=== PATIENT | male | born 1970 | race Two or more races ===

== ENCOUNTER 2019-02-23 15:13 | Inpatient (IN) | payer OTHER ==
[~2019-02-23] VITALS: Ht 162.6 cm; Wt 86.2 kg
--- NOTE | 2019-02-23 15:26 | NUR ---
SYMPTOMOLOGY REVIEWED WITH PROVIDER IN TRIAGE, PER MOMO KLIPATRICK, PT DOES NOT NEED EKG AT THIS TIME.
[2019-02-23 15:56] LABS: BASOPHILS # (AUTO) 0.06 x10^3/uL (0-0.1); BASOPHILS % (AUTO) 1 % (0-1); EOSINOPHILS # (AUTO) 0.12 x10^3/uL (0-0.4); EOSINOPHILS % (AUTO) 1 % (1-7); LYMPHOCYTES # (AUTO) 3.21 x10^3/uL (1-3.4); LYMPHOCYTES % (AUTO) 24 % (22-44); MD NO; MEAN CORPUSCULAR HEMOGLOBIN 29.5 pg (27.5-34.5); MEAN CORPUSCULAR HGB CONC 34.2 g/dL (33.2-36.2); MEAN CORPUSCULAR VOLUME 86.3 fL (81-97); MEAN PLATELET VOLUME 8.1 fL (7.4-10.4); MONOCYTES # (AUTO) 0.67 x10^3/uL (0.2-0.8); MONOCYTES % (AUTO) 5 % (2-9); NEUTROPHILS # (AUTO) 9.16 x10^3/uL (1.8-6.8); NEUTROPHILS % (AUTO) 69 % (42-75); PLATELET COUNT 320 x10^3/uL (130-400); RED BLOOD COUNT 6.39 x10^6/uL (4.38-5.82); RED CELL DISTRIBUTION WIDTH 13.1 % (9.4-14.8)
[2019-02-23 16:11] LABS: ALBUMIN 4.3 g/dL (3.4-5.0); ANION GAP 11 mmol/L (5-15); CALCIUM 9.5 mg/dL (8.5-10.1); CHLORIDE 108 mmol/L (98-107)
[2019-02-23 16:15] LABS: ALANINE AMINOTRANSFERASE 34 U/L (12-78); ALKALINE PHOSPHATASE 85 U/L (45-117); BILIRUBIN,TOTAL 0.4 mg/dL (0.2-1.0); TOTAL PROTEIN 8.8 g/dL (6.4-8.2)
--- NOTE | 2019-02-23 16:26 | NUR ---
MEDICAL LOGISTICS SPECIALIST: PT TO ROOM FROM LOBBY
[2019-02-23] MEDS ORDERED: ONDANSETRON 2MG/ML, 2ML ONE (16:59)
[2019-02-23] MEDS ORDERED: MORPHINE SULFATE 4 MG/ML, 1ML ONE (16:59)
[2019-02-23] MEDS ORDERED: POTASSIUM CHLORIDE 10 MEQ in D5%-0.45% NACL 1,000 ML IV ONE (17:04)
--- NOTE | 2019-02-23 17:05 | NUR ---
rEPORT CALLED TO FLOOR
--- NOTE | 2019-02-23 17:25 | NUR ---
ERP AND SURGERY AT BEDSIDE. PT VSS, NG INSERTED, AUSCULTATED FOR PLACEMENT, APPROX 500 DARK FLUID OUT.
[2019-02-23] MEDS ORDERED: MORPHINE SULFATE 4 MG/ML, 1ML IVPush ONE (18:00)
[2019-02-23] MEDS ORDERED: MORPHINE SULFATE 4 MG/ML, 1ML IV PRN (18:00)
[2019-02-23] MEDS ORDERED: ONDANSETRON 2MG/ML, 2ML IVPush ONE (18:00)
[2019-02-23] MEDS ORDERED: SODIUM CHLORIDE 0.9% 1,000 ML IV ONE (18:00)
[2019-02-23] MEDS: SODIUM CHLORIDE 0.9% 1,000 ML IV SCH (18:33)
[2019-02-23] MEDS: METOCLOPRAMIDE 5 MG/ML, 2ML IV SCH (18:33)
[2019-02-23 19:26] VITALS: BP 123/79
[2019-02-23] MEDS: FAMOTIDINE 20 MG/2 ML IVPush SCH (20:55)
[2019-02-24] MEDS: SODIUM CHLORIDE 0.9% 1,000 ML IV SCH ×3 (00:57→21:18)
[2019-02-24] MEDS: METOCLOPRAMIDE 5 MG/ML, 2ML IV SCH ×5 (01:09→23:59)
[2019-02-24 02:08] VITALS: BP 104/66
[2019-02-24 05:47] LABS: BASOPHILS # (AUTO) 0.02 x10^3/uL (0-0.1); BASOPHILS % (AUTO) 0 % (0-1); EOSINOPHILS # (AUTO) 0.18 x10^3/uL (0-0.4); EOSINOPHILS % (AUTO) 2 % (1-7); LYMPHOCYTES # (AUTO) 2.52 x10^3/uL (1-3.4); LYMPHOCYTES % (AUTO) 25 % (22-44); MD NO; MEAN CORPUSCULAR HEMOGLOBIN 29.9 pg (27.5-34.5); MEAN CORPUSCULAR HGB CONC 34.1 g/dL (33.2-36.2); MEAN CORPUSCULAR VOLUME 87.8 fL (81-97); MEAN PLATELET VOLUME 8.4 fL (7.4-10.4); MONOCYTES # (AUTO) 0.83 x10^3/uL (0.2-0.8); MONOCYTES % (AUTO) 8 % (2-9); NEUTROPHILS % (AUTO) 65 % (42-75); PLATELET COUNT 258 x10^3/uL (130-400); RED BLOOD COUNT 5.32 x10^6/uL (4.38-5.82)
[2019-02-24 05:50] LABS: ANION GAP 7 mmol/L (5-15); CALCIUM 7.8 mg/dL (8.5-10.1); CHLORIDE 114 mmol/L (98-107)
[2019-02-24 05:52] LABS: CREATININE 1.04 mg/dL (0.7-1.3)
[2019-02-24 06:46] LABS: MICROSCOPIC NOT IND
[2019-02-24 06:48] LABS: CULTURE INDICATED? NO
[2019-02-24 07:10] VITALS: BP 116/66
[2019-02-24] MEDS: FAMOTIDINE 20 MG/2 ML IVPush SCH ×2 (10:06→21:18)
[2019-02-24 13:55] VITALS: BP 120/72
[2019-02-24 15:14] LABS: CLOSTRIDIUM DIFFICILE ANTIGEN NEGATIVE; CLOSTRIDIUM DIFFICILE TOXIN NEGATIVE (Negative)
[2019-02-24 18:35] VITALS: BP 118/71
[2019-02-24 20:25] VITALS: BP 129/67
[2019-02-25 00:45] VITALS: BP 114/59
[2019-02-25] MEDS: SODIUM CHLORIDE 0.9% 1,000 ML IV SCH (03:46)
[2019-02-25 05:36] LABS: BASOPHILS # (AUTO) 0.03 x10^3/uL (0-0.1); BASOPHILS % (AUTO) 0 % (0-1); EOSINOPHILS # (AUTO) 0.25 x10^3/uL (0-0.4); EOSINOPHILS % (AUTO) 3 % (1-7); LYMPHOCYTES # (AUTO) 2.68 x10^3/uL (1-3.4); LYMPHOCYTES % (AUTO) 36 % (22-44); MD NO; MEAN CORPUSCULAR HEMOGLOBIN 29.9 pg (27.5-34.5); MEAN CORPUSCULAR HGB CONC 33.5 g/dL (33.2-36.2); MEAN CORPUSCULAR VOLUME 89.2 fL (81-97); MEAN PLATELET VOLUME 8.1 fL (7.4-10.4); MONOCYTES # (AUTO) 0.66 x10^3/uL (0.2-0.8); MONOCYTES % (AUTO) 9 % (2-9); NEUTROPHILS # (AUTO) 3.89 x10^3/uL (1.8-6.8); NEUTROPHILS % (AUTO) 52 % (42-75); PLATELET COUNT 257 x10^3/uL (130-400); RED BLOOD COUNT 4.78 x10^6/uL (4.38-5.82); RED CELL DISTRIBUTION WIDTH 12.8 % (9.4-14.8)
[2019-02-25 05:38] LABS: ANION GAP 9 mmol/L (5-15); CALCIUM 7.7 mg/dL (8.5-10.1); CHLORIDE 112 mmol/L (98-107)
[2019-02-25 05:39] LABS: CREATININE 0.95 mg/dL (0.7-1.3)
[2019-02-25] MEDS: METOCLOPRAMIDE 5 MG/ML, 2ML IV SCH (06:12)
[2019-02-25 08:02] VITALS: BP 119/75
[2019-02-25] MEDS: FAMOTIDINE 20 MG/2 ML IVPush SCH (08:43)
== END 2019-02-25 11:00 | disposition home or self-care (01) | DRG 389 ==
LOC: ED 16:50 → 4NOR 16:51 → ED 17:45 → DCLOUNGE 02-25 10:54
PROVIDERS: ADMIT Surgery; ATTEND Surgery
PROC: 0D9670Z Drainage of Stomach with Drainage Device, Via Natural or Artificial Opening (ICD-10-PCS; principal; 2019-02-23)
DX: K56.609 Unspecified intestinal obstruction, unspecified as to partial versus complete obstruction (principal); N17.9 Acute kidney failure, unspecified; K52.9 Noninfective gastroenteritis and colitis, unspecified; E86.0 Dehydration; R79.89 Other specified abnormal findings of blood chemistry; Z90.49 Acquired absence of other specified parts of digestive tract; D72.829 Elevated white blood cell count, unspecified; Z87.891 Personal history of nicotine dependence
CPT/HCPCS: 36415; 74018; 74021; 74250; J3490; 80048; 80053; 81003; 83690; 85025; 87324; 89055; 96361; 96374; G0378; J2405; J2765; J7030